=== PATIENT | female | born 1950 | race Two or more races ===

== ENCOUNTER 2021-05-15 08:36 | Emergency (ER) | payer OTHER ==
[~2021-05-15] VITALS: Ht 149.9 cm; Wt 54.4 kg
== END 2021-05-15 15:29 | disposition home or self-care (01) ==
LOC: ER 08:36
DX: T81.31XA Disruption of external operation (surgical) wound, not elsewhere classified, initial encounter (principal); K59.09 Other constipation; Y83.8 Other surgical procedures as the cause of abnormal reaction of the patient, or of later complication, without mention of misadventure at the time of the procedure; Z90.710 Acquired absence of both cervix and uterus; Z03.818 Encounter for observation for suspected exposure to other biological agents ruled out